=== PATIENT | female | born 1995 | race Caucasian/White ===

== ENCOUNTER 2019-07-26 19:37 | Emergency (ER) | payer SELFPAY ==
[~2019-07-26] VITALS: Ht 157.5 cm; Wt 45.4 kg
[2019-07-26 19:41] VITALS: BP_SYST 129
--- NOTE | 2019-07-26 19:41 | NUR ---
Patient triaged and placed in [facility] W/ AMBULANCE GURNEY. VSS and patient appears in no acute distress at this time. Accompanied by EMS , awaiting available bed, and MD notified of need for MSE.
--- NOTE | 2019-07-26 20:29 | NUR ---
Patient to ER bed [facility] for evaluation. Side rails up. Report given to DANILO LARA.
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
--- NOTE | 2019-07-26 20:50 | NUR ---
ER Dr. Woods at bedside examining patient.
[2019-07-26] MEDS ORDERED: ONDANSETRON 4 MG ODT TAB PO ONE (21:00)
[2019-07-26] MEDS ORDERED: HYDROcodone/ACETAMIN 5-325 MG TAB (NORCO/ VICODIN) PO ONE (21:00)
--- NOTE | 2019-07-26 21:40 | NUR ---
Pt is resting in bed, no acute distress noted at this time.
[2019-07-26 22:06] LABS: BILIRUBIN,URINE NEGATIVE (NEGATIVE); COLOR,URINE YELLOW (YELLOW); GLUCOSE,URINE NEGATIVE (NEGATIVE); KETONES,URINE NEGATIVE (NEGATIVE); LEUKOCYTE ESTERASE ,URINE TRACE (NEGATIVE); NITRITE, URINE POSITIVE (NEGATIVE); PH,URINE 6.5 (5.0-8.0); PROTEIN URINE NEGATIVE (NEGATIVE); UROBILINOGEN,URINE 0.2 (0.2-1.0)
[2019-07-26 22:20] LABS: BLOOD, URINE TRACE (NEGATIVE); CLARITY/URINE SLIGHTLY HAZY (CLEAR)
[2019-07-26 22:34] LABS: BACTERIA,URINE MANY /HPF (None Seen); RBC,URINE 0-3 /HPF (0-3)
[2019-07-26 22:35] LABS: MUCUS,URINE None Seen /LPF (None Seen)
[2019-07-26 22:53] VITALS: BP_SYST 129
--- NOTE | 2019-07-26 22:54 | NUR ---
Patient given written and verbal discharge instructions and verbalizes understanding. ER MD discussed with patient the results and treatment provided. Patient in stable condition. ID arm band removed. Rx of MjdKorin Norco given. Patient educated on pain management and to follow up with PMD. Pain Scale 0. Opportunity for questions provided and answered. Medication side effect fact sheet provided.
== END 2019-07-26 22:54 | disposition home or self-care (01) ==
LOC: SED 19:37
DX: S13.4XXA Sprain of ligaments of cervical spine, initial encounter (principal); S23.3XXA Sprain of ligaments of thoracic spine, initial encounter; S33.5XXA Sprain of ligaments of lumbar spine, initial encounter; S20.219A Contusion of unspecified front wall of thorax, initial encounter; N39.0 Urinary tract infection, site not specified; V49.9XXA Car occupant (driver) (passenger) injured in unspecified traffic accident, initial encounter; Y92.413 State road as the place of occurrence of the external cause; Y93.89 Activity, other specified; Y99.8 Other external cause status
CPT/HCPCS: 71045; 72040; 72072; 72100; 81000; 81025; 87086; 99284; Q0162